=== PATIENT | female | born 1950 | race Caucasian/White ===

== ENCOUNTER 2017-04-21 13:50 | Emergency (ER) | payer MEDICARE, MEDICAID ==
[~2017-04-21] VITALS: Ht 157.5 cm; Wt 110.0 kg
[~2017-04-21 13:50] MED LIST: ACET-1757 PO; ACID1TAB PO; ALBU0.63 NEB; ALBU8.5H3; ALBU8.5H3 INH; ALBU8.5H5 INH; ALPR0.25 PO; AMLO10TA4 PO; ASPI-496 PO; ASPI-515 PO; ATOR20TA9 PO; AZTR1VIA IVPB; BISA10SU2 PR; BUDE10.2 IH; CALC-151 PO; CARV3.1212 PO; CLON-365 PO; DECADRON PO; DIAZ2TAB3 PO; DOCU-30 PO; DOXY100C2 PO; ERYT1OIN4 OP; ESCI10TA PO; ESZO1TAB6 PO; FURO-93; FURO-93 PO; FURO20TA3 PO; GABA-826 PO; GLIM2TAB2 PO; HEPA500024 SQ; HYDR-3138 PO; HYDR-882 PO; HYDR200T5 PO; INSU100V5 SQ-INSULIN; LORA-445 PO; MAGN400T7 PO; MECL-76 PO; MECL25TA4 PO; MECL50TA PO; METF500T4 PO; MULT-108 PO; NITR0.4T8 SL; OMEP-110 PO; ONDA-39 PO; PANT40GR PO; PIOG45TA3 PO; PIOG45TA7 PO; POLY17PO5 PO; POTA10TA11 PO; PRAV80TA2 PO; RAMI5CAP PO; SUCR1ORA2 PO; TRAM50TA2 PO
[2017-04-21] MEDS ORDERED: ASPIRIN 81 MG TABLET CHEW PO ONE (14:30)
[2017-04-21] MEDS ORDERED: NITROGLYCERIN SINGLE TAB 0.4 MG SL PRN (14:30)
[2017-04-21] MEDS ORDERED: SODIUM CHLORIDE FLUSH 10ML SYR IVF ONE (14:30)
[2017-04-21 14:42] LABS: HEMATOCRIT 36.4 % (34.6-47.8); HEMOGLOBIN 12.3 g/dL (11.7-16.4)
[2017-04-21 14:54] LABS: BLOOD UREA NITROGEN 29 mg/dL (7-18)
[2017-04-21] MEDS ORDERED: ACETAMINOPHEN 325 MG TABLET ONE (15:00)
[2017-04-21] MEDS ORDERED: MECLIZINE CHEWABLE 25 MG TAB PO ONE (15:00)
[2017-04-21] MEDS ORDERED: ACETAMINOPHEN 325 MG TABLET PO ONE (15:00)
[2017-04-21] MEDS ORDERED: MECLIZINE CHEWABLE 25 MG TAB ONE (15:01)
[2017-04-21] MEDS ORDERED: SODIUM CHLORIDE FLUSH 10ML SYR IVF PRN (16:00)
[2017-04-21] MEDS ORDERED: LABETALOL 5MG/ML, 20ML IVPush PRN (17:00)
[2017-04-21] MEDS ORDERED: HEPARIN 5,000 UNITS/ML, 1ML SQ SCH (17:00)
[2017-04-21] MEDS ORDERED: ACETAMINOPHEN 325 MG TABLET PO PRN (17:00)
[2017-04-21] MEDS ORDERED: POLYETHYLENE GLYCOL 17 GM PACKET PO PRN (17:00)
[2017-04-21] MEDS ORDERED: NITROGLYCERIN 0.4 MG BOTTLE (25 TABS) SL PRN (17:00)
[2017-04-21] MEDS ORDERED: TEMAZEPAM 15 MG CAPSULE PO PRN (17:00)
[2017-04-21] MEDS ORDERED: INSULIN ASPART 100 UNITS/ML, PEN SQ-INSULIN SCH (17:00)
[2017-04-21] MEDS ORDERED: morphine SULFATE 10 MG/ML, 1ML IVPush PRN (17:00)
[2017-04-21] MEDS ORDERED: ONDANSETRON ODT 4 MG PO PRN (17:00)
[2017-04-21] MEDS ORDERED: TEMPLATE NON-FORMULARY MED. (Budesonide/Formoterol Fumarate (Symbicort 160-4.5 Mcg Inhaler IH PRN (17:00)
[2017-04-21] MEDS ORDERED: OMNIPAQUE 350 MG/ML, 100ML BOTTLE ONE (18:35)
[2017-04-21] MEDS ORDERED: SODIUM CHLORIDE 0.9% 500 ML IV SCH (19:00)
[2017-04-21] MEDS ORDERED: ALBUTEROL SULFATE 2.5 MG/3 ML NPPB PRN (19:30)
[2017-04-21] MEDS ORDERED: ATORVASTATIN 20 MG TABLET PO SCH (21:00)
[2017-04-21] MEDS ORDERED: OMEPRAZOLE 20 MG CAPSULE.DR PO SCH (21:00)
[2017-04-21] MEDS ORDERED: CARVEDILOL 3.125 MG TABLET PO SCH (21:00)
[2017-04-21] MEDS ORDERED: FUROSEMIDE 20 MG TABLET PO SCH (21:00)
[2017-04-21 21:18] LABS: IS PT STATUS REG ER OR PRE ER? YES
[2017-04-21 22:47] VITALS: BP 159/73
[2017-04-22] MEDS ORDERED: TEMPLATE NON-FORMULARY MED. (Escitalopram Oxalate** 10 MG) PO SCH (09:00)
[2017-04-22] MEDS ORDERED: TEMPLATE NON-FORMULARY MED. (Glimepiride** 2 MG) PO SCH (09:00)
[2017-04-22] MEDS ORDERED: ASPIRIN 81 MG TABLET EC PO SCH (09:00)
[2017-04-22] MEDS ORDERED: FLUTICASONE/VILANTEROL 100-25MCG/INH INH SCH (09:00)
== END 2017-04-21 22:58 | disposition home or self-care (01) ==
LOC: ED 15:36 → INTOOBSV 15:45 → UNDOADMOB 15:45 → EDIP 15:45 → ED 22:58
DX: I20.8 Other forms of angina pectoris (principal); I11.0 Hypertensive heart disease with heart failure; I50.9 Heart failure, unspecified; E78.5 Hyperlipidemia, unspecified; F32.9 Major depressive disorder, single episode, unspecified; F41.9 Anxiety disorder, unspecified; I48.91 Unspecified atrial fibrillation; J44.9 Chronic obstructive pulmonary disease, unspecified; K21.9 Gastro-esophageal reflux disease without esophagitis; E11.9 Type 2 diabetes mellitus without complications; Z87.891 Personal history of nicotine dependence; Z88.0 Allergy status to penicillin; Z99.81 Dependence on supplemental oxygen; Z88.5 Allergy status to narcotic agent; Z88.8 Allergy status to other drugs, medicaments and biological substances
CPT/HCPCS: 36415; 71010; 71275; 80048; 82040; 83690; 83735; 83880; 84100; 84439; 84443; 84484; 85025; 85379; 85610; 85730; 93005; 96360; 96361; 99285; J7040; Q9967

== ENCOUNTER → 2018-12-28 | Outpatient (CLI) | payer MEDICARE, MEDICAID ==
[~2018-12-28] MED LIST changes: -ALBU8.5H3; -ALBU8.5H3 INH; +ALBU8.5H8; +ALBU8.5H8 INH; +ATOR20TA37 PO; -ATOR20TA9 PO; -CLON-365 PO; +CLON1TAB11 PO; +DOCU-131 PO; -DOCU-30 PO; -ESZO1TAB6 PO; +ESZO1TAB8 PO; -HYDR-3138 PO; +HYDR-3237 PO; +HYDR-3653 PO; -HYDR-882 PO; +METF500T17 PO; -METF500T4 PO; +NITR0.4T28 SL; -NITR0.4T8 SL; -ONDA-39 PO; +ONDA4TAB12 PO; +PIOG45TA20 PO; -PIOG45TA3 PO; +PIOG45TA64 PO; -PIOG45TA7 PO; -RAMI5CAP PO; +RAMI5CAP57 PO; -SUCR1ORA2 PO; +SUCR1ORA5 PO
== END | disposition home or self-care (01) ==
LOC: CVU 12:59
PROVIDERS: ATTEND Internal Medicine Cardiovascular Disease
DX: I08.0 Rheumatic disorders of both mitral and aortic valves (principal)
CPT/HCPCS: 93306

== ENCOUNTER 2019-07-03 17:40 | Emergency (ER) | payer MEDICARE, MEDICAID ==
[~2019-07-03] VITALS: Ht 157.5 cm; Wt 100.0 kg
[~2019-07-03 17:40] MED LIST changes: -BISA10SU2 PR; +BISA10SU4 PR
--- NOTE | 2019-07-03 18:41 | NUR ---
PT IN RADIOLOGY
--- NOTE | 2019-07-03 18:50 | NUR ---
PT CARE TRANSFERRED TO JEFF AZAR.
[2019-07-03] MEDS ORDERED: ONDANSETRON 2MG/ML, 2ML IVPush ONE (19:00)
[2019-07-03] MEDS ORDERED: SODIUM CHLORIDE FLUSH 10ML SYR IVF ONE (19:00)
[2019-07-03] MEDS ORDERED: FAMOTIDINE 20 MG/2 ML IVPush ONE (19:00)
[2019-07-03 19:09] LABS: BASOPHILS # (AUTO) 0.03 x10^3/uL (0-0.1); BASOPHILS % (AUTO) 0 % (0-1); EOSINOPHILS # (AUTO) 0.14 x10^3/uL (0-0.4); EOSINOPHILS % (AUTO) 2 % (1-7); LYMPHOCYTES # (AUTO) 1.87 x10^3/uL (1-3.4); LYMPHOCYTES % (AUTO) 25 % (22-44); MD NO; MEAN CORPUSCULAR HEMOGLOBIN 30.4 pg (27.0-34.8); MEAN CORPUSCULAR HGB CONC 32.6 g/dL (32.4-35.8); MEAN CORPUSCULAR VOLUME 93.2 fL (80-100); MEAN PLATELET VOLUME 10.5 fL (7.4-10.4); MONOCYTES % (AUTO) 9 % (2-9); NEUTROPHILS # (AUTO) 4.75 x10^3/uL (1.8-6.8); NEUTROPHILS % (AUTO) 63 % (42-75); PLATELET COUNT 161 x10^3/uL (130-400); RED BLOOD COUNT 3.74 x10^6/uL (3.82-5.3); RED CELL DISTRIBUTION WIDTH 14.2 % (9.6-15.2)
[2019-07-03] MEDS ORDERED: FAMOTIDINE 20 MG/2 ML ONE (19:17)
[2019-07-03] MEDS ORDERED: ONDANSETRON 2MG/ML, 2ML ONE (19:17)
[2019-07-03 19:22] LABS: CALCIUM 9.2 mg/dL (8.5-10.1); CHLORIDE 109 mmol/L (98-107)
[2019-07-03 19:28] LABS: ALANINE AMINOTRANSFERASE 63 U/L (12-78); ALBUMIN 3.3 g/dL (3.4-5.0); ALKALINE PHOSPHATASE 71 U/L (45-117); ANION GAP 8 mmol/L (5-15); BILIRUBIN,TOTAL 0.8 mg/dL (0.2-1.0)
[2019-07-03 20:38] LABS: MICROSCOPIC NOT IND
[2019-07-03 20:41] LABS: CULTURE INDICATED? NO
--- NOTE | 2019-07-03 21:45 | NUR ---
BACK FROM CT.
--- NOTE | 2019-07-03 22:08 | NUR ---
BACK TO CT. FOR ABD W/ CONTRAST.
--- NOTE | 2019-07-03 22:27 | NUR ---
RETURN FROM CT.
[2019-07-03] MEDS ORDERED: OMNIPAQUE 350 MG/ML, 100ML BOTTLE ONE (22:28)
--- NOTE | 2019-07-03 22:36 | NUR ---
THE PT IS REQUESTING PAIN MED FOR C/O ABD PAIN, ERP UPDATED.
[2019-07-03] MEDS ORDERED: KETOROLAC 30 MG/1 ML ONE (22:38)
[2019-07-03] MEDS ORDERED: KETOROLAC 30 MG/1 ML IVPush ONE (23:00)
[2019-07-03 23:50] VITALS: BP 169/81
== END 2019-07-03 23:52 | disposition home or self-care (01) ==
LOC: ED 21:31
DX: R10.32 Left lower quadrant pain (principal); R11.2 Nausea with vomiting, unspecified; R19.7 Diarrhea, unspecified; I11.9 Hypertensive heart disease without heart failure; E11.9 Type 2 diabetes mellitus without complications; I48.91 Unspecified atrial fibrillation; K21.9 Gastro-esophageal reflux disease without esophagitis; I50.9 Heart failure, unspecified; J44.9 Chronic obstructive pulmonary disease, unspecified; Z90.49 Acquired absence of other specified parts of digestive tract; Z90.710 Acquired absence of both cervix and uterus; Z87.891 Personal history of nicotine dependence
CPT/HCPCS: 36415; 74021; 74170; 74176; 80053; 81003; 83690; 85025; 93005; 96374; 96375; 99284; J1885; J2405; J3490; Q9967

== ENCOUNTER 2020-09-18 13:06 | Outpatient (CLI) | payer MEDICARE, MEDICAID ==
[~2020-09-18 13:06] MED LIST changes: -ACET-1757 PO; +ACET-2065 PO; -ESCI10TA PO; +ESCI10TA5 PO; -GLIM2TAB2 PO; +GLIM2TAB7 PO; -MAGN400T7 PO; +MAGN400T9 PO; +MECL-101 PO; -MECL25TA4 PO; +ONDA-89 PO; -ONDA4TAB12 PO
== END 2020-09-18 23:59 | disposition home or self-care (01) ==
LOC: CVU 13:06
PROVIDERS: ATTEND Internal Medicine Cardiovascular Disease
DX: I08.8 Other rheumatic multiple valve diseases (principal); I11.9 Hypertensive heart disease without heart failure; I27.20 Pulmonary hypertension, unspecified
CPT/HCPCS: 93306